=== PATIENT | male | born 1930 | race Caucasian/White ===

== ENCOUNTER 2018-08-28 11:47 | Inpatient (IN) ==
[2018-08-28 12:44] LABS: BASO# 0.02 X1000 (0.0-0.2); BASO% 0.2 % (0.0-0.8); EOS# 0.03 X1000 (0.0-0.7); EOS% 0.3 % (0.0-10.0); HEMATOCRIT 39.8 % (42.0-52.0); HEMOGLOBIN 13.4 g/dL (14.0-18.0); IMM GRAN# 0.02 X1000 (0.0-0.04); IMM GRAN% 0.2 % (0.0-0.5); LYMPH# 0.45 X1000 (1.2-3.4); LYMPH% 3.8 % (20.5-51.1); MCH 32.6 PG (27-31); MCHC 33.7 g/dL (33-37); MCV 96.8 FL (81-99); MONO# 0.84 X1000 (0.11-0.59); MONO% 7.1 % (1.7-9.3); MPV 11.4 FL (7.4-10.4); NEUT# 10.47 X1000 (1.4-6.5); NEUT% 88.4 % (42.2-75.2); PLT 104 X1000 (130-400); RBC 4.11 XMIL (4.7-6.1); RDW 12.8 % (11.5-14.5); WBC 11.83 X1000 (4.8-10.8)
[2018-08-28 12:49] LABS: AGAP 14; ALB/GLOB RATIO 1.2; ALBUMIN 3.7 g/dL (3.5-5.0); ALKALINE PHOSPHATASE 78 U/L (32-122); AMYLASE 38 U/L (20-200); BUN 17 mg/dL (8-22); CHLORIDE 101 mmol/L (98-107); COSMO 281; CREATININE 0.9 mg/dL (0.7-1.2); ESTIMATED GFR > 60; GLUCOSE 162 mg/dL (70-104); GOT 14 U/L (10-34); GPT 9 U/L (10-44); LIPASE 24 U/L (13-60); SODIUM 138 mmol/L (136-145); TCO2 23 mmol/L (25-35); TOTAL BILIRUBIN 0.77 mg/dL (0.20-1.00); TOTAL PROTEIN 6.8 g/dL (6.3-8.3)
[2018-08-28] MEDS ORDERED: ROCEPHIN 1 GM in NS 50 ML IV ONE (13:55)
[2018-08-28] MEDS ORDERED: TYLENOL PO ONE (13:56)
[2018-08-28] MEDS ORDERED: NS 1,000 ML IV ONE (14:17)
--- NOTE | 2018-08-28 17:07 | PROVIDER DOCUMENTATION ---
This chart was entered by Keiko Valdez Scribe, acting as scribe for Kelvin Beavers MD. HPI-Fever - General Chief Complaint: Nausea/Vomiting Stated Complaint: ABD PAIN,NAUSEA Time Seen by Provider: 08/28/18 13:37 Source: family () Allergies/Adverse Reactions: Patient Allergies Allergy/AdvReac Type Severity Reaction Status Date / Time No Known Allergies Allergy Verified 08/28/18 13:36 Home Medications: Home Medication List Medication Instructions Recorded Confirmed Last Taken Type Alfuzosin E.r. [Uroxatral] 10 mg PO QHS 07/12/13 08/28/18 08/24/17 History Bisoprolol [Zebeta] 5 mg PO DAILY 07/12/13 08/28/18 08/25/17 History Cholecalciferol (Vitamin D3) 2,000 unit PO DAILY 07/12/13 08/28/18 08/25/17 History [D3-2000] Cyanocobalamin/Folic Acid [B-12 1 each SL DAILY 07/12/13 08/28/18 08/25/17 History 1,000 Mcg Sub Tablet] Famotidine 20 mg PO DAILY 07/12/13 08/28/18 08/25/17 History Furosemide [Lasix] 20 mg PO DAILY 07/12/13 08/28/18 08/25/17 History RAMIpril [Altace] 2.5 mg PO EVERY OTHER DAY 07/12/13 08/28/18 08/22/17 History ROSUVAstatin [Crestor] 10 mg PO DAILY 07/12/13 08/28/18 08/25/17 History Saxagliptin [Onglyza] 5 mg PO DAILY 07/12/13 08/28/18 08/25/17 History Clopidogrel Bisulfate [Plavix] 75 mg PO DAILY 01/28/14 08/28/18 08/25/17 History Finasteride 5 mg PO DAILY 01/28/14 08/28/18 08/25/17 History Multivitamins/Minerals [Centrum 1 tab PO DAILY 01/28/14 08/28/18 08/25/17 History Silver] Dabigatran Etexilate Mesylate 75 mg PO BID 08/25/17 08/28/18 08/25/17 08:00 History [Pradaxa] Digoxin [Lanoxin] 0.25 microgm PO DAILY 08/25/17 08/28/18 08/25/17 History Ascorbic Acid [Vitamin C] 500 mg PO DAILY 08/28/18 08/28/18 Unknown History Dabigatran Etexilate Mesylate 75 mg PO QAM 08/28/18 08/28/18 Unknown History [Pradaxa] Iron,Carbonyl/Vit C/Vit B12/FA 1 ea PO DAILY 08/28/18 08/28/18 Unknown History [Iron 100 Plus Tablet] Quetiapine Fumarate [Seroquel] 50 mg PO DIRECTED 08/28/18 08/28/18 Unknown History Quetiapine [Seroquel] 75 mg PO HS 08/28/18 08/28/18 Unknown History Rivastigmine [Exelon 9.5MG/24Hrs] 1 ea TD DAILY 08/28/18 08/28/18 Unknown History - History of Present Illness-Fever Nature of Presenting Problem: 88yom presents to ED cc N/V/F since this morning and he has had a UTI since Friday that is being treated by Dr. Nobles with ABT. is at bedside and states pt is complaining of dysuria and has hematuria. Pt has hx of AFIB, CAD, hyperlipidemia and dementia. Pt has had no diarrhea. Fever Severity/Quality: reports: greater than 102 F Onset/Duration: reports: 3 days ago Timing: reports: still present, changing over time Context: reports: none Recent Illness?: reports: UTI Cognitive Baseline: other (dementia) Modifying Factors: worse with: urinating Associated Symptoms: reports: fever/chills, genitourinary problems (dysuria and hematuria) Similar Symptoms Previously?: Yes Recently seen or treated by another doctor?: Yes (Dr. Nobles) Review of Systems - Adult - REVIEW OF SYSTEMS - ADULT Constitutional: reports: see HPI, chills, fever. denies: fatique Eyes: reports: no symptoms reported Ears, Nose, Mouth & Throat: reports: no symptoms reported Cardiovascular: reports: no symptoms reported Respiratory: reports: no symptoms reported Gastrointestinal: reports: see HPI, nausea, vomiting. denies: diarrhea Genitourinary: reports: see HPI, dysuria, hematuria. denies: flank pain Musculoskeletal: reports: no symptoms reported Integumentary: reports: no symptoms reported Neurological: reports: no symptoms reported Psychiatric: reports: no symptoms reported Endocrine: reports: no symptoms reported Hematologic/Lymphatic: reports: no symptoms reported Allergic/Immunologic: reports: no symptoms reported All Other Systems: Reviewed and Negative Past History - Adult - PAST MEDICAL HISTORY-ADULT Review of Records: reports: Old Records Reviewed, Nursing Assessment Review, Medications Reviewed, Social history reviewed & non-contributory. Major Childhood Illnesses: reports: denies history Cardiovascular: reports: CAD, HTN, [place] Respiratory: reports: denies history Gastrointestinal: reports: denies history Obstetrical/Gynecological: reports: denies history Genitourinary: reports: denies history Musculoskeletal: reports: denies history Neurological: reports: CVA, dementia Endocrine/Immune: reports: denies history Other Conditions: reports: denies history - PRIOR SURGERIES/PROCEDURES Surgical/Procedure History: reports: cholecystectomy, cardiac stent - IMMUNIZATION STATUS Childhood Immunizations: See Nurse Assessment Flu Vaccine: See Nurse Assessment - FAMILY HISTORY Family History: reviewed, not pertinent Physical Exam-General - PHYSICAL EXAM-ADULT Initial Vital Signs Reviewed: Yes - CONSTITUTIONAL General Appearance: negative: anxious, combative - EYES Eyes: PERRL/EOMI, pink conjunctivae. negative: photophobia - HEAD, EARS, NOSE, MOUTH & THROAT HENMT: moist mucous membranes, normal ENT inspection. negative: angioedema - NECK Neck: non-tender, full range of motion, supple, normal inspection. negative: Brudzinski's sign, carotid bruit - RESPIRATORY Respiratory: chest non-tender, lungs clear, normal breath sounds, no pleuratic chest pain, no respiratory distress, no accessory muscle use. negative: crackles, rales, rhonchi - CARDIOVASCULAR Cardiovascular: normal peripheral pulses, regular rate, rhythm, no edema, no gallop, no JVD, no murmur. negative: bradycardia, tachycardia - GASTROINTESTINAL (ABDOMEN) Abdominal Exam: normal bowel sounds, non tender, soft, no organomegaly. negative: rigid, rebound, tenderness - LYMPHATIC Lymphatic: no adenopathy. negative: striations - MUSCULOSKELETAL Back Exam: normal inspection. negative: swelling Extremity: normal range of motion, normal inspection. negative: deformity - SKIN Integumentary: normal color, normal turgor, warm/dry. negative: diaphoresis, jaundice - NEUROLOGIC Neurologic: negative: facial droop, focal weakness - PSYCHIATRIC Psych/Mental Status: negative: anxious Progress - PLAN OF CARE/RESULTS Progress/Plan/Lab Results: Vital Signs - 8 hr 08/28/18 11:59 08/28/18 14:59 08/28/18 15:03 Temperature 97.8 F Pulse Rate 114 H Respiratory Rate 18 Blood Pressure 117/66 133/64 150/67 O2 Sat by Pulse Oximetry 94 L 96 97 Laboratory Results - last 24 hr 08/28/18 08/28/18 08/28/18 12:14 12:19 12:19 WBC 11.83 H RBC 4.11 L Hgb 13.4 L Hct 39.8 L MCV 96.8 MCH 32.6 H MCHC 33.7 RDW Std Deviation 12.8 Plt Count 104 L MPV 11.4 H Immature Gran % (Auto) 0.2 Neut % (Auto) 88.4 H Lymph % (Auto) 3.8 L White % (Auto) 7.1 Eos % (Auto) 0.3 Baso % (Auto) 0.2 Immature Gran # (Auto) 0.02 Neut # (Auto) 10.47 H Lymph # (Auto) 0.45 L White # (Auto) 0.84 H Eos # (Auto) 0.03 Baso # (Auto) 0.02 Sodium 138 Potassium 4.0 Chloride 101 Carbon Dioxide 23 L Anion Gap 14 BUN 17 Creatinine 0.9 Estimated GFR/1.73 m2 > 60 BUN/Creatinine Ratio 19 Glucose 162 H POC Glucose 162 H D Calculated Osmolality 281 Calcium 9.0 Total Bilirubin 0.77 AST 14 ALT 9 L Alkaline Phosphatase 78 Total Protein 6.8 Albumin 3.7 Globulin 3.1 Albumin/Globulin Ratio 1.2 Amylase 38 Lipase 24 Plasma Lactate 08/28/18 14:57 WBC RBC Hgb Hct MCV MCH MCHC RDW Std Deviation Plt Count MPV Immature Gran % (Auto) Neut % (Auto) Lymph % (Auto) White % (Auto) Eos % (Auto) Baso % (Auto) Immature Gran # (Auto) Neut # (Auto) Lymph # (Auto) White # (Auto) Eos # (Auto) Baso # (Auto) Sodium Potassium Chloride Carbon Dioxide Anion Gap BUN Creatinine Estimated GFR/1.73 m2 BUN/Creatinine Ratio Glucose POC Glucose Calculated Osmolality Calcium Total Bilirubin AST ALT Alkaline Phosphatase Total Protein Albumin Globulin Albumin/Globulin Ratio Amylase Lipase Plasma Lactate 1.1 Orders Category Date Time Status Admit - [facility] Routine AdmDCTranf 08/28/18 15:38 Active NPO Diet 08/28/18 12:20 Active AMYLASE [CHEM] Stat Lab 08/28/18 12:19 Completed BLOOD CULTURE [BLDCUL] Stat Lab 08/28/18 14:57 Results CBC WITH ELECTRONIC DIFF [HEME] Stat Lab 08/28/18 12:19 Completed COMPREHENSIVE METABOLIC PANEL [CHEM] Stat Lab 08/28/18 12:19 Completed LACTATE, PLASMA [CHEM] Stat Lab 08/28/18 14:57 Completed LIPASE [CHEM] Stat Lab 08/28/18 12:19 Completed URINALYSIS W/POSS RFLX CULT [URINALYSIS] Stat Lab 08/28/18 12:20 Uncollected 0.9% Sodium Chloride Inj [Ns] 1,000 ml Med 08/28/18 14:17 Discontinued IV 999 mls/hr Acetaminophen [Tylenol] Med 08/28/18 13:56 Discontinued 650 mg PO NOW ONE CefTRIAXONE [Rocephin] 1 gm Med 08/28/18 13:55 Discontinued 0.9% Sodium Chloride Inj [Ns] 50 ml IV NOW Transfer/Admit Order [TRANSFER] Routine Transfer 08/28/18 15:39 Completed Result Diagrams: 08/28/18 12:19 08/28/18 12:19 - CONSULTS/PCP/HOSPITALIST Notification #1 *Consult/PCP/Hospitalist*: Dr. Loco Momin Discussed: 13:06 Consult Disposition: Admit (pt is a Dr. Tao pt so he will have to admit but Dr. Adan will follow) #2 Consult: Dr. Dinh Momin Discussed: 15:39 Consult Disposition: Admit (agreed to admit pt) Departure - Departure Date of Disposition Decision: 08/28/18 Time of Disposition Decision: 14:10 DIAGNOSIS: Urinary tract infection with fever Disposition: ADMITTED INPATIENT 09 Certified Medical Emergency: Emergent Condition: Stable - Critical Care Note This patient required my direct & personal management of CC.: No Attestation - Physician/ LA Attestation Patient care was provided by Advanced Practice Provider:: No The physician spent face to face time with patient:: Yes Advanced Practice Provider documentation review:: Supervising physician onsite and consulted in the evaluation and care of this patient. The physician did have a face to face encounter with the patient. This chart was documented by the indicated scribe, (Keiko Valdez, Roxane) and accurately reflects the services I performed and decisions made by me, Kelvin Beavers MD, as attested by the provider's signature.
[2018-08-28] MEDS ORDERED: SODIUM CHLORIDE 0.9% INJ SCH (18:00)
[2018-08-28] MEDS: NS 1,000 ML IV SCH (18:58)
[2018-08-28] MEDS: PEPCID IV SCH (18:58)
[2018-08-28] MEDS: LEVAQUIN 500 MG/D5W 500 MG/100 ML IVPB IV SCH (18:58)
--- NOTE | 2018-08-28 19:01 | Diag Imaging Result Doc PS360 ---
EXAM: US RENAL 2 (RETROPER) COMPLETE HISTORY: iván/arf TECHNIQUE: Renal ultrasound COMPARISON: 06/27/2010 FINDINGS: The right kidney measures 11.9 x 6.3 x 6.2 cm. There is a 6.5 cm septated cyst arising from the upper pole. Previously it measured 4.2 cm. Normal renal echotexture and cortical thickness. No stone or hydronephrosis. The left kidney measures 11.5 x 5.4 x 6.5 cm. Normal renal echotexture and cortical thickness. No renal stone or hydronephrosis. No renal mass. The urinary bladder is not distended. IMPRESSION: Large right renal cyst. Electronically signed by Rodriguez San 08/28/2018 6:58 PM
[2018-08-28 19:13] LABS: URINE SOURCE CLEAN CATCH
[2018-08-28 19:24] LABS: BILIRUBIN URINE NEGATIVE (NEGATIVE); BLOOD URINE TRACE (NEGATIVE); COLOR YELLOW; GLUCOSE URINE NEGATIVE (NEGATIVE); KETONE URINE 10 mg/dL (NEGATIVE); LEUKOCYTES URINE SMALL (NEGATIVE); NITRITE URINE NEGATIVE (NEGATIVE); PROTEIN URINE 30 mg/dL (NEGATIVE); SP GRAVITY URINE 1.024; TURBIDITY URINE CLEAR (CLEAR); UR EPITHELIAL CELLS <10 /HPF (<10); URINE BACTERIA NEGATIVE /HPF; URINE RBC <10 /HPF (<10); UROBILINOGEN URINE NORMAL (NORMAL)
[2018-08-28] MEDS ORDERED: ALTACE PO SCH (20:00)
[2018-08-28] MEDS: SEROQUEL PO SCH (21:09)
[2018-08-28] MEDS: UROXATRAL PO SCH (21:10)
[2018-08-28] MEDS: PRADAXA PO SCH (21:10)
--- NOTE | 2018-08-28 22:23 | HISTORY AND PHYSICAL ---
CHIEF COMPLAINT: Nausea, vomiting, abdominal pain. HISTORY OF PRESENT ILLNESS: He is an 88-year-old white male who was seen in emergency room, complains of possible UTI symptoms, treated by Dr. Nobles. The patient was given Bactrim. He started having significant hematuria, dysuria. He was confused. Patient has been in diapers. Basically admitted to the hospital for UTI, hematuria, and mental confusion. 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 PAST SURGICAL HISTORY: Bilateral cataract surgery, stents placed, left sigmoid colectomy, aortic valve replacement 2013, complicated by pleural effusion on the right side with chest tube, cholecystectomy. MEDICATIONS: 1. Zebeta 5 mg daily. 2. Onglyza 5 mg daily. 3. Altace 2.5 mg every other day. 4. Pepcid 20 mg daily. 5. Vitamin B12, 1000 mcg sublingual daily. 6. Vitamin D3, 2000 units daily. 7. Crestor 10 mg daily. 8. Uroxatral 10 mg at bedtime. 9. Lasix 20 mg daily. 10. Plavix 75 daily. 11. Centrum Silver 1 tablet daily. 12. Finasteride 5 mg daily. 13. Pradaxa 75 p.o. b.i.d. 14. Lanoxin 125 mcg daily. 15. Vitamin C 500 mg daily. 16. Icar-C Plus 1 tablet daily. 17. Seroquel 75 mg at bedtime. 18. Seroquel 50 in the morning. 19. Exelon patch 9.5 daily. ALLERGIES: Not known. SOCIAL HISTORY: with 3 kids, retired, living in [place]. No drugs, no alcohol. Lives with his . His son works in the hospital. FAMILY HISTORY: Father of colon cancer at 61. Mom of natural causes. HEALTH MAINTENANCE: Reported flu vaccine 2018, pneumococcal 2017. Last rectal exam January 2018, by Dr. Nobles. Colonoscopy July 2013. REVIEW OF SYSTEMS: The patient pleasantly confused. Most of the history was obtained from the family. He denies of any headaches. No weakness. Cardiopulmonary: No chest pain, shortness of breath. No palpitations. Gastrointestinal: Lower abdominal pain, nausea. Genitourinary: Blood in the urine. Extremities: No swelling of legs. No joint pain. Neurologic: No focal symptoms or weakness. EXAMINATION: Vital signs: Temperature is 99.1 degrees, pulse 73, blood pressure is stable. 6 feet tall. 176 pounds. General: He is pleasantly confused. HEENT: Within normal limits. Neck: Supple. No lymphadenopathy. No goiter. Chest: Bilateral air entry. Heart: Sounds are regular. Abdomen: Belly is soft, nontender. Good bowel sounds. Diapers. Extremities: No varicose veins. No edema noted. Neuro: No obvious neurological deficits. INVESTIGATIONS: White cell count 11, hematocrit 39, platelets 104,000. SMA-7 is normal. Glucose 162. LFTs were normal. Urinalysis suggestive of infection. ASSESSMENT AND PLAN: 1. An 88-year-old, white male admitted to the hospital with altered mental status due to metabolic encephalopathy with underlying dementia; with recent urinary tract infection and hematuria. Plan is IV fluids. IV Levaquin. We will get the reports from Dr. Nobles. 2. History of benign prostatic hypertrophy. On Uroxatral 10 mg at bedtime. Reconcile home medicines. 3. Paroxysmal atrial fibrillation. On Pradaxa, that might cause the bleeding problem. We will closely watch and I will get an ultrasound of the kidneys. No need for deep venous thrombosis prophylaxis. 4. Dementia. On Exelon patch, with agitation on Seroquel. 5. Type 2 diabetes. On Onglyza. 6. Patient was given IV ceftriaxone. Follow up on urine culture. Repeat the labs in the morning. Also, will discuss about the Living Will with his son. cc: Emerson Tao MD
[2018-08-29] MEDS: PEPCID IV SCH ×2 (06:35→17:39)
[2018-08-29 07:22] LABS: BASO# 0.01 X1000 (0.0-0.2); BASO% 0.1 % (0.0-0.8); EOS# 0.07 X1000 (0.0-0.7); EOS% 0.6 % (0.0-10.0); HEMATOCRIT 36.4 % (42.0-52.0); HEMOGLOBIN 11.9 g/dL (14.0-18.0); IMM GRAN# 0.02 X1000 (0.0-0.04); IMM GRAN% 0.2 % (0.0-0.5); LYMPH# 0.91 X1000 (1.2-3.4); LYMPH% 7.9 % (20.5-51.1); MCH 32.2 PG (27-31); MCHC 32.7 g/dL (33-37); MCV 98.6 FL (81-99); MONO# 1.32 X1000 (0.11-0.59); MONO% 11.4 % (1.7-9.3); MPV 11.6 FL (7.4-10.4); NEUT# 9.25 X1000 (1.4-6.5); NEUT% 79.8 % (42.2-75.2); PLT 101 X1000 (130-400); RBC 3.69 XMIL (4.7-6.1); RDW 12.9 % (11.5-14.5); WBC 11.58 X1000 (4.8-10.8)
[2018-08-29 07:44] LABS: AGAP 10; ALB/GLOB RATIO 1.3; ALBUMIN 3.3 g/dL (3.5-5.0); ALKALINE PHOSPHATASE 73 U/L (32-122); BUN 16 mg/dL (8-22); CALCIUM 8.5 mg/dL (8.8-10.2); CHLORIDE 107 mmol/L (98-107); COSMO 289; CREATININE 0.9 mg/dL (0.7-1.2); ESTIMATED GFR > 60; GLUCOSE 114 mg/dL (70-104); GOT 13 U/L (10-34); GPT 9 U/L (10-44); POTASSIUM 4.1 mmol/L (3.5-5.1); SODIUM 144 mmol/L (136-145); TCO2 27 mmol/L (25-35); TOTAL PROTEIN 5.8 g/dL (6.3-8.3)
[2018-08-29] MEDS: CRESTOR PO SCH (09:37)
[2018-08-29] MEDS: PROSCAR PO SCH (09:37)
[2018-08-29] MEDS: ZEBETA PO SCH (09:37)
[2018-08-29] MEDS: PLAVIX PO SCH (09:37)
[2018-08-29] MEDS: ICAR-C PLUS PO SCH (09:37)
[2018-08-29] MEDS: PRADAXA PO SCH ×2 (09:38→20:17)
[2018-08-29] MEDS: LASIX PO SCH (09:38)
[2018-08-29] MEDS: LANOXIN PO SCH (09:38)
[2018-08-29] MEDS: CENTRUM SILVER PO SCH (09:38)
[2018-08-29] MEDS: VITAMIN B-12 PO SCH (09:38)
[2018-08-29] MEDS: VITAMIN D PO SCH (09:38)
[2018-08-29] MEDS: VITAMIN C PO SCH (09:39)
[2018-08-29] MEDS: EXELON 9.5MG/24HRS TD SCH (09:39)
[2018-08-29] MEDS: ONGLYZA PO SCH (09:39)
[2018-08-29] MEDS: NS 1,000 ML IV SCH ×2 (09:41→20:17)
[2018-08-29] MEDS: SEROQUEL PO SCH ×3 (12:05→20:17)
[2018-08-29] MEDS ORDERED: STERILE WATER INJ. INJ ONE (13:13)
[2018-08-29] MEDS ORDERED: GEODON IM ONE (13:13)
--- NOTE | 2018-08-29 15:15 | PROGRESS NOTE ---
DATE: 08/29/2018 SUBJECTIVE: The patient is completely agitated. He is getting out of the bed, and are still waiting from Dr. Nobles' reports. PHYSICAL EXAMINATION: Vital signs: Temperature is 98, pulse 68, blood pressure stable. HEENT: Exam within normal limits. Chest: Clear. Heart: Sounds are regular. Abdomen: Belly is soft, nontender. He is in diapers. Skin examination: Some vasculitic rash noted. INVESTIGATIONS: CBC is normal. SMA-7 is normal. LFTs are normal. Urine cultures were negative. ASSESSMENT AND PLAN: 1. Altered mental status due to metabolic encephalopathy. 2. Underlying dementia, stable. 3. Benign prostatic hypertrophy with hematuria probably from the Plavix and combination of Pradaxa. An ultrasound is negative. 4. Dementia with agitation. Geodon was given. Will use Ativan as needed. Continue on Seroquel. Will discuss with the family. At this time, there is no need to any further workup and hopefully we can send him home tomorrow. Will follow up. LEVEL OF DOCUMENTATION: 25 minutes. cc: mEerson Tao MD
[2018-08-29] MEDS: LEVAQUIN 500 MG/D5W 500 MG/100 ML IVPB IV SCH (17:38)
[2018-08-29] MEDS ORDERED: ATIVAN IV PRN (20:01)
[2018-08-29] MEDS: UROXATRAL PO SCH (20:17)
[2018-08-30] MEDS: NS 1,000 ML IV SCH ×2 (04:00→09:03)
[2018-08-30] MEDS: PRADAXA PO SCH (09:01)
[2018-08-30] MEDS: ZEBETA PO SCH (09:01)
[2018-08-30] MEDS: CRESTOR PO SCH (09:01)
[2018-08-30] MEDS: VITAMIN D PO SCH (09:01)
[2018-08-30] MEDS: PLAVIX PO SCH (09:01)
[2018-08-30] MEDS: PROSCAR PO SCH (09:01)
[2018-08-30] MEDS: CENTRUM SILVER PO SCH (09:01)
[2018-08-30] MEDS: ICAR-C PLUS PO SCH (09:01)
[2018-08-30] MEDS: PEPCID IV SCH (09:02)
[2018-08-30] MEDS: LANOXIN PO SCH (09:02)
[2018-08-30] MEDS: VITAMIN C PO SCH (09:02)
[2018-08-30] MEDS: LASIX PO SCH (09:02)
[2018-08-30] MEDS: VITAMIN B-12 PO SCH (09:02)
[2018-08-30] MEDS: EXELON 9.5MG/24HRS TD SCH (09:03)
[2018-08-30] MEDS: ONGLYZA PO SCH (09:03)
[2018-08-30 11:53] VITALS: BP 124/86
[2018-08-30] MEDS ORDERED: PREVNAR 13 IM ONE (13:21)
[2018-08-30] MEDS: SEROQUEL PO SCH (14:07)
--- NOTE | 2018-08-30 20:17 | DISCHARGE SUMMARY ---
ADMISSION DATE: 08/28/2018 DISCHARGE DATE: 08/30/2018 DISCHARGING DIAGNOSES: 1. Altered mental status due to metabolic encephalopathy with underlying urinary tract infection due to Escherichia coli extended-spectrum beta-lactamase negative sensitive to Bactrim and Macrobid. 2. Benign prostatic hypertrophy. 3. Vasculitic rash. Change the Plavix every other day. 4. Paroxysmal atrial fibrillation. 5. Coronary artery disease, status post stents. 6. Status post transcutaneous aortic valve replacement for aortic valve. 7. Dementia. 8. Type 2 diabetes. 9. Hyperlipidemia. 10. Gynecomastia due to spironolactone. 11. History of lacunar stroke. 12. Thrombocytopenia, stable. 13. History of transient ischemic attacks. 14. Varicose veins. BRIEF HISTORY: Please see the H and P that was done on 08/28/2018. In brief, this is an 88-year-old white male seen by Dr. Burch for this rash. Change the Plavix every other day as well as bleeding from the urine, confusion, fever 102. The patient has history of BPH. The patient was given Bactrim. He continued to deteriorate. Was brought to the ER on Friday. HOSPITAL COURSE: I did not see any obvious bleeding. Ultrasound of the renals. No stones, no masses noted. Urine cultures grew E. coli that was done outside from the hospital. It is sensitive to Bactrim and Macrobid. The patient continues on Bactrim as an outpatient. During this hospital course, he was more confused and requiring Geodon and Ativan. The confusion, more of a affect. LABS: CBC: White cell count 11, hematocrit 36, platelets 101,000. Sodium 144, potassium 4.1, BUN 16, creatinine 0.9, glucose 114, calcium 8.5. LFTs were normal. Repeat urine cultures mixed amarilys. Blood cultures were negative. Prior urine cultures at Dr. Nobles's office showed E. coli in the urine. At the time of discharge, he is stable. DISCHARGE INSTRUCTIONS: 1. Continue Plavix every other day. 2. Continue on Macrobid 100 p.o. b.i.d. for 10 days, Zebeta 5 mg daily, Onglyza 5 mg daily, Altace 2.5 every other day, Pepcid 20 daily, cyanocobalamin folic acid 1 tablet daily, vitamin D3 of 2000 units daily, Crestor 10 mg daily, Uroxatral 10 at bedtime, Lasix 20 mg daily, Centrum Silver 1 tablet daily, finasteride 5 mg daily, Pradaxa 75 p.o. b.i.d., Lanoxin 125 mcg daily, vitamin C 500 daily, Icar C Plus daily, Quetiapine 25 in the morning and 75 in the night, Exelon patch 1 tablet daily, and Macrobid 100 p.o. b.i.d. 3. Follow up in my office next week as well as Dr. Nobles. cc: MD Dr. Giuliano Narvaez MD
== END 2018-08-30 14:40 | disposition home or self-care (01) | DRG 689 ==
LOC: ED 11:47 → EDIPHOLD 15:49 → 3N 17:20
PROVIDERS: ADMIT Internal Medicine; ATTEND Internal Medicine
CPT/HCPCS: 76770; 80053; 81001; 82150; 82948; 83605; 83690; 85025; 87040; 87077; 87088; 87186; 90670; 96365; 96366; 99284; A9270; J0696; J1956; J2060; J3486; J7030; S0028; S0138; XXXXX